=== PATIENT | male | born 1940 | race Caucasian/White ===

== ENCOUNTER 2018-01-09 17:06 | Emergency (ER) | payer MEDICARE, OTHER ==
[~2018-01-09] VITALS: Ht 182.9 cm; Wt 91.0 kg
[~2018-01-09 17:06] MED LIST: ALLEGRA-D 1212 HOUR PO; ASPIRIN EC81 MG PO; AUGMENTIN500TAB PO; AUGMENTIN875 MG OR; CIPROFLOXACN500 MG PO; FLEXERIL10 MG PO; FLEXERIL5 MG PO; FLONASE SPRAY50 MC1; HYDROCHLOROT25 MG PO; KETOCONAZOLE200 MG PO; LOPRESSOR12.5 MG PO; LOPRESSOR25 MG PO; LORTAB 10 PO; LORTAB 5 OR; LORTAB 7.57.5 MG/TAB PO; MEDDOSEPAK PO; MEDROL4 M1 PO; NIZORAL2 % EX; NYSTATIN100000 M1 PO; OMEPRAZOLE20 MG PO; OMEPRAZOLE40 MG PO; PRILOSEC40 MG PO; PROVENTIL HFA IN; SIMVASTATIN40 MG PO; TYLENOL # 31 TAB PO; ZPAK PO; [UNRECOGNIZED DRUG - REMARK]; [UNRECOGNIZED DRUG - REMARK]
[2018-01-09] MEDS ORDERED: KEFLEX500 M1 PO (19:00)
[2018-01-09 19:11] VITALS: BP 148/81
== END 2018-01-09 19:11 | disposition home or self-care (01) ==
LOC: ED 17:06
DX: S91.331A Puncture wound without foreign body, right foot, initial encounter (principal); W45.0XXA Nail entering through skin, initial encounter; Y93.01 Activity, walking, marching and hiking; Y92.007 Garden or yard of unspecified non-institutional (private) residence as the place of occurrence of the external cause

== ENCOUNTER 2018-03-14 05:14 | Emergency (ER) | payer MEDICARE, OTHER ==
[~2018-03-14] VITALS: Ht 182.9 cm; Wt 113.6 kg
[~2018-03-14 05:14] MED LIST changes: +KEFLEX500 M1 PO
[2018-03-14 05:37] LABS: HEMATOCRIT 43.5 % (39.0-50.0); HEMOGLOBIN 15.2 g/dl (14.0-18.0); IMMATURE GRANULOCYTES 0.4 % (0.0-5.0); MEAN CELL VOLUME 94.4 fL CALC (80.0-100.0); MEAN CORPUSCULAR HGB CONC 34.9 g/L CALC (32.0-36.0); NEUT# 4.94 thou/uL (1.82-7.42); RED BLOOD COUNT 4.61 mill/uL (4.70-6.10); RED CELL DISTRI WIDTH 12.6 % (11.5-15.5)
[2018-03-14 05:56] LABS: ALKALINE PHOSPHATASE 92 u/l (38-126); ANION GAP 13 (6-22 (CALC)); BILIRUBIN, TOTAL 0.7 mg/dL (0.0-1.4); BUN 22 mg/dL (8-23); BUN/CREATININE RATIO 13 (12-20 (CALC)); CARBON DIOXIDE 29 mmol/l (22-30); CHLORIDE 100 mmol/l (95-108); CREATININE 1.6 mg/dL (0.7-1.3); GFR 42 ML/MIN (>=60 (CALC)); GFR FOR AFR.AMER. 51 ML/MIN (>=60 (CALC)); POTASSIUM 3.7 mmol/l (3.5-5.1); SGOT/AST 25 u/l (19-48); SODIUM 139 mmol/l (137-146); TOTAL PROTEIN 7.1 g/dL (6.3-8.2)
[2018-03-14 06:02] LABS: ALBUMIN 4.2 g/dL (3.2-5.0)
[2018-03-14 06:07] LABS: MYOGLOBIN 55 ng/mL (0 - 121)
[2018-03-14 06:25] LABS: URINE BILIRUBIN - DIPSTICK NEGATIVE (NEGATIVE); URINE BLOOD DIPSTICK NEGATIVE (NEGATIVE); URINE CLARITY CLEAR; URINE COLOR YELLOW; URINE GLUCOSE - DIPSTICK NEGATIVE (NEGATIVE); URINE KETONE 15 mg/dL (NEGATIVE); URINE LEUK ESTERASE NEGATIVE (NEGATIVE); URINE NITRITE - DIPSTICK NEGATIVE (Negative); URINE PROTEIN - DIPSTICK NEGATIVE (NEG-TRACE)
[2018-03-14 06:28] LABS: BARBITURATES NEGATIVE (NEGATIVE); COCAINE NEGATIVE (NEGATIVE); METHADONE NEGATIVE (NEGATIVE); OXCYCODONE NEGATIVE (NEGATIVE); TETRAHYDROCANNABIONOL NEGATIVE (NEGATIVE); TRICYLIC ANTIDEPRESSANTS NEGATIVE (NEGATIVE)
[2018-03-14] MEDS ORDERED: MEDDOSEPAK PO (06:38)
[2018-03-14] MEDS ORDERED: ANTIVERT PO (06:38)
[2018-03-14] MEDS ORDERED: ZOFRAN ODT4 MG PO (06:38)
[2018-03-14 06:56] VITALS: BP 140/72
== END 2018-03-14 06:57 | disposition home or self-care (01) ==
LOC: ED 05:14
PROVIDERS: Emergency Medicine
DX: R42 Dizziness and giddiness (principal); I10 Essential (primary) hypertension; R94.31 Abnormal electrocardiogram [ECG] [EKG]

== ENCOUNTER 2018-05-26 06:56 | Observation (INO) | payer MEDICARE, OTHER ==
[~2018-05-26] VITALS: Ht 182.9 cm; Wt 94.8 kg
[~2018-05-26 06:56] MED LIST changes: +ANTIVERT PO; +ZOFRAN ODT4 MG PO
--- NOTE | 2018-05-26 07:10 | NUR ---
PATIENT TO ROOM VIA WHEELCHAIR AND PHYSICIAN AT BEDSIDE FOR EVAL
--- NOTE | 2018-05-26 07:24 | NUR ---
PT MEDICATED PER ORDER WITH 1, 0.4 MG NITRO, SL. PATIENT DENIES ANY CHEST PAIN AT THIS TIME. BP 159/88. WILL HOLD LABETALOL 10 MG, NOTIFIED OF LAST BP. PT REPORTS 4 DAY HX OF INTERMITTENT LEFT SIDED CHEST/RIB PAIN UPON COUGHING AND CERTAIN MOVEMENTS. PT C/O COLD-LIKE SYMPTOMS WITH SORE THROAT AND PRODUCTIVE COUGH X 4 DAYS. BILATERAL LS CLEAR, RESP EVEN AND UNLABORED. SAO2 96% ON ROOM AIR AT THIS TIME. PT AWARE OF PLAN OF CARE AND WAIT TIME. CALL JOHNSTON WITHIN REACH.
--- NOTE | 2018-05-26 07:30 | NUR ---
DAILY MEDICATION'S REVIEWED WITH PT.
[2018-05-26 07:39] LABS: HEMATOCRIT 44.6 % (39.0-50.0); HEMOGLOBIN 15.2 g/dl (14.0-18.0); IMMATURE GRANULOCYTES 0.4 % (0.0-5.0); MEAN CORPUSCULAR HGB CONC 34.1 g/L CALC (32.0-36.0); NEUT# 7.09 thou/uL (1.82-7.42); RED BLOOD COUNT 4.6 mill/uL (4.70-6.10)
[2018-05-26 07:46] LABS: ANION GAP 15 (6-22 (CALC)); BUN 13 mg/dL (8-23); BUN/CREATININE RATIO 13 (12-20 (CALC)); CARBON DIOXIDE 24 mmol/l (22-30); CHLORIDE 103 mmol/l (95-108); GFR > 60 ML/MIN (>=60 (CALC)); GFR FOR AFR.AMER. > 60 ML/MIN (>=60 (CALC)); POTASSIUM 3.8 mmol/l (3.5-5.1); SODIUM 137 mmol/l (137-146)
--- NOTE | 2018-05-26 07:55 | NUR ---
PT REMAINS CHEST PAIN FREE AT THIS TIME. MONITOR SHOWING NSR AT 70, BP 113/64. PT C/O HEADACHE. PT AWARE THAT TYLENOL WAS GIVEN. LIGHTS DIMMED FOR COMFORT. PT AWARE OF PENDING RESULTS AND WAIT TIME. CALL JOHNSTON WITHIN REACH.
--- NOTE | 2018-05-26 08:10 | NUR ---
MD AT BEDSIDE TO DISCUSS RESULTS AND PLAN FOR ADMISSION.
--- NOTE | 2018-05-26 09:00 | NUR ---
PT AWARE OF PLAN FOR ADMISSION AND WAIT TIME. PT DENIES ANY CHEST PAIN OR HEADACHE AT THIS TIME.
--- NOTE | 2018-05-26 09:40 | NUR ---
PT AWARE OF CONTINUED WAIT TIME FOR ADMISSION ORDERS. PT IN NAD, RESP EVEN AND UNLABORED. PT PAIN FREE AT THIS TIME. CALL JOHNSTON WITHIN REACH. WILL CONTINUE TO MONITOR.
--- NOTE | 2018-05-26 10:00 | NUR ---
PT REQUESTING TO LEAVE PANTS AND SHOES ON UNTIL TAKEN TO ROOM.
--- NOTE | 2018-05-26 10:02 | NUR ---
DR DUBOIS AT BEDSIDE.
--- NOTE | 2018-05-26 10:10 | NUR ---
Admission Note Report Given to: MARGARETH MUHAMMAD Transported by: X Wheelchair Stretcher Transported with: X Nurse Transporter X Patent IV O2 X Gizzard Puller PT TO ROOM 283 VIA WHEELCHAIR, CARE RELINQUISHED TO MARGARETH MUHAMMAD. PT IN STABLE CONDITION.
[2018-05-26 10:15] VITALS: BP 138/83
--- NOTE | 2018-05-26 10:16 | NUR ---
[facility] BY MARGARETH WALTON. GUICHO IN ROOM TO OBTAIN VS. CALL LIGHT IN REACH.
--- NOTE | 2018-05-26 12:00 | NUR ---
ASSESSMENT DONE. PT IS A&O X3. RESPS EVEN AND UNLABORED. PT HAS A DRY COUGH. #22 RAC THAT APPEARS HEALTHY. TELE IN PLACE. IN ROOM. CALL LIGHT IN REACH.
[2018-05-26 15:55] VITALS: BP 135/83
--- NOTE | 2018-05-26 16:12 | NUR ---
PT IS RESTING IN BED WITH NO S/S OF DISTRESS NOTED. PT DENIES PAIN AT THIS TIME. IN ROOM. CALL LIGHT IN REACH.
[2018-05-26 19:15] VITALS: BP 143/82
--- NOTE | 2018-05-26 19:32 | NUR ---
PATIENT RESTING IN BED AT THIS TIME AWAKE ALERT AND ORIENTEDX3. C/O NON-PRODUCTIVE COUGH-MEDICATED WITH ROBITUSSIN ORDERED FOR COUGH. IV SITE TO RIGHT AC WITH IVF LR PATENT AND INFUSING AT 75CC/HR. SITE APPEARS HELATHY AT THIS TIME. SAFETY PRECAUTIONS REINFORCED.CALL LIGHT IN REACH. WILL CONT TO MONITOR.
--- NOTE | 2018-05-26 21:41 | NUR ---
PATIENT RESTING IN BED AT THIS TIME WITH VISITOR AT BEDSIDE-EATING PIZZA. PATIENT PROVIDED WITH HS MEDS. STILL WITH NON-PRODUCTIVE COUGH. C/O LEFT SIDED CHEST PAIN-OFFERED PAIN MEDS BUT PATIENT DECLINED AT THIS TIME. IVF PATENT AT 75CC/HR. SITE REMAINS HEALTHY. CALL LIGHT IN REACH. WILL CONT TO MONITOR.
[2018-05-27 00:05] VITALS: BP 131/68
--- NOTE | 2018-05-27 00:35 | NUR ---
PATIENT RESTING IN BED. IVF D51/2NS PATENT AND INFUSING AT 75CC/HR.NEW BAG HUNG AND SITE REMAINS HEALTHY AT THIS TIME. CONT WITH NON-PRODUCTIVE COUGH-MEDICATED WITH ROBITUSSIN AGAIN. C/O LEFT SIDE CHEST AND BACK PAIN BUT CONT TO DECLINE ANYTHING FOR PAIN AT THIS TIME. CALL LIGHT IN REACH. WILL CONT TO MONITOR.
[2018-05-27 04:20] VITALS: BP 129/70
--- NOTE | 2018-05-27 04:24 | NUR ---
PATIENT RESTING IN BED-APPEARS SLEEPING WITH EYES CLOSED AND RESP EVEN AND UNLABORED. IVF PATENT AND INFUSING AT 75CC/HR VIA RIGHT AC SITE. CALL LIGHT IN REACH. WILL CONT TO MONITOR.
--- NOTE | 2018-05-27 06:18 | NUR ---
PATIENT STILL WITH NON-PRODUCTIVE COUGH-REFUSES ROBITUSSIN AT THIS TIME. PATIENT SLIGHT SOB-O2 SAT-97 ON RA. PATIENT WITH WHEEZING TO LEFT LUNG. DIMINISHED IN RIGHT BASE. CALL LIGHT IN REACH. WILL CONT TO MONITIOR.
[2018-05-27 06:29] LABS: HEMATOCRIT 43.5 % (39.0-50.0); HEMOGLOBIN 14.8 g/dl (14.0-18.0); IMMATURE GRANULOCYTES 0.4 % (0.0-5.0); MEAN CORPUSCULAR HGB 33.3 pG CALC (26.0-32.0); NEUT# 7.94 thou/uL (1.82-7.42); RED BLOOD COUNT 4.44 mill/uL (4.70-6.10); RED CELL DISTRI WIDTH 13.1 % (11.5-15.5)
[2018-05-27 06:37] LABS: ALBUMIN 3.6 g/dL (3.2-5.0); ALKALINE PHOSPHATASE 100 u/l (38-126); ANION GAP 14 (6-22 (CALC)); BILIRUBIN, TOTAL 0.7 mg/dL (0.0-1.4); BUN 14 mg/dL (8-23); BUN/CREATININE RATIO 15 (12-20 (CALC)); CARBON DIOXIDE 25 mmol/l (22-30); CHLORIDE 104 mmol/l (95-108); CHOLESTEROL HDL RATIO 3.6 (<4.4 (CALC)); CREATININE 0.9 mg/dL (0.7-1.3); GFR > 60 ML/MIN (>=60 (CALC)); GFR FOR AFR.AMER. > 60 ML/MIN (>=60 (CALC)); SGOT/AST 20 u/l (19-48); SODIUM 139 mmol/l (137-146); TOTAL PROTEIN 6.4 g/dL (6.3-8.2)
--- NOTE | 2018-05-27 08:50 | NUR ---
PT RESTING IN BED, NO SIGNS OF DISTRESS NOTED, RESP EVEN AND UNLABORED. PT ALERT AND ORIENTED X3, DISCUSSED POC, VSS. PT MEDICATED PER MAR. PNEUMONIA VACC INJECTION TO PORTILLO, PT TOLERATED WELL. ASSESSMENT COMPLETED. CALL LIGHT IN REACH,CONTINUE TO MONITOR.
[2018-05-27 08:51] VITALS: BP 132/72
--- NOTE | 2018-05-27 10:47 | NUR ---
PT TAKEN TO RADIOLOGY FOR CXR. CONTINUE TO MONITOR.
--- NOTE | 2018-05-27 11:00 | NUR ---
PT RETURNED FROM RADIOLOGY, PT MEDICATED WITH FERNANDOSIN AC. CALL LIGHT IN REACH,CONTINUE TO MONITOR.
[2018-05-27 11:50] VITALS: BP 129/72
--- NOTE | 2018-05-27 14:20 | NUR ---
PT SITTING UP IN BED, NO SIGNS OF DISTRESS NOTED, RESP EVEN AND UNLABORED. PT STILL COUGHING, STATES HE IS COUGHING UP GREEN PHLEM. CALL LIGHT IN REACH, CONTINUE TO MONITOR.
--- NOTE | 2018-05-27 15:36 | NUR ---
PT RESTING IN BED, NO SIGNS OF DISTRESS NOTED, RESP EVEN AND UNLABORED. S/O AT BEDSIDE. CALL LIGHT IN REACH,CONTINUE TO MONITOR.
[2018-05-27 16:00] VITALS: BP 118/71
[2018-05-27 19:30] VITALS: BP 148/68
--- NOTE | 2018-05-27 19:30 | NUR ---
PATIENT RESTING IN BED AT THIS TIME-AWAKE ALERT AND ORIENTEDX3. CURRENTLY RECEIVING NEB TREATMENT. CONT TO HAVE COUGH-OCC PRODUCTIVE WITH GREEN SPUTUM THIS AFTERNOON. CONT TO C/O LEFT SIDED CHEST PAIN. PATIENT MEDICATED WITH ROBITUSSIN AC FOR COUGH. OFFERED PAIN MEDS BUT PATIENT DECLINES AT THIS TIME. IV SITE TO RIGHT AC INTACT WITH IVF D51/2NS PATENT AND INFUSING AT 75CC/HR. SITE IS HEALTHY AT THIS TIME. TELE MONITOR IN PLACE. LUNGS ARE CLEAR AT THIS TIME. SAFETY PRECAUTIONS REINFORCED.CALL LIGHT IN REACH. WILL CONT TO MONITOR.
[2018-05-28] VITALS (7 sets, daily range): BP systolic 124–144; BP diastolic 68–80
--- NOTE | 2018-05-28 00:36 | NUR ---
PATIENT RESTING IN BED AT THIS TIME WITH S/O AT BEDSIDE. ASKING FOR COUGH MEDS BUT TOO EARLY AT THIS TIME. WILL MEDICATE PATIENT WHEN ABLE. TELE MONITOR IN PLACE. IVF PATENT AND INFUSING AT 75CC/HR VIA RIGHT AC SITE. SAFETY PRECAUTIONS REINFORCED.CALL LIGHT IN REACH. WILL CONT TO MONITOR.
--- NOTE | 2018-05-28 02:07 | NUR ---
PATIENT RESTING IN BED WITH S/O AT BEDSIDE. PATIENT MEDICATED FOR NON-PRODUCTIVE COUGH WITH ROBITUSSIN AC ORDERED. TELLE IN PLACE. IVF PATENT AND INFUSING AT 75CC/HR ORDERED. CALL LIGHT IN REACH. WILL CONT TO MONITOR.
--- NOTE | 2018-05-28 04:43 | NUR ---
RESTING IN BED AT THIS TIME WITH HOB ELEVATED AND EYES CLOSED. TELE MONITOR IN PLACE. IVF D51/2NS PATENT AND INFUSING VIA RIGHT AC SITE. CALL LIGHT IN REACH. WILL CONT TO MONITOR.
--- NOTE | 2018-05-28 06:03 | NUR ---
PATIENT C/O rOUGH" NIGHT-NOT ABLE TO SLEEP. STILL WITH NON PRODUCTIVE COUGH. CONT TO C/O LEFT SIDED CHEST PAIN BUT DECLINES TO TAKE ANY PAIN MEDS. IVF PATENT AND INFUSING AT 75CC/HR. TELE MONITOR INPLACE. CALL LIGHT IN REACH. WILL CONT TO MONITOR.
[2018-05-28 06:21] LABS: HEMATOCRIT 44.7 % (39.0-50.0); HEMOGLOBIN 15.1 g/dl (14.0-18.0); IMMATURE GRANULOCYTES 0.4 % (0.0-5.0); MEAN CELL VOLUME 98.5 fL CALC (80.0-100.0); MEAN CORPUSCULAR HGB 33.3 pG CALC (26.0-32.0); MEAN CORPUSCULAR HGB CONC 33.8 g/L CALC (32.0-36.0); NEUT# 7.48 thou/uL (1.82-7.42); RED BLOOD COUNT 4.54 mill/uL (4.70-6.10); RED CELL DISTRI WIDTH 13.1 % (11.5-15.5)
[2018-05-28 06:36] LABS: ALBUMIN 3.5 g/dL (3.2-5.0); ALKALINE PHOSPHATASE 84 u/l (38-126); ANION GAP 14 (6-22 (CALC)); BILIRUBIN, TOTAL 0.7 mg/dL (0.0-1.4); BUN 11 mg/dL (8-23); BUN/CREATININE RATIO 12 (12-20 (CALC)); CARBON DIOXIDE 25 mmol/l (22-30); CHLORIDE 105 mmol/l (95-108); CREATININE 0.9 mg/dL (0.7-1.3); GFR > 60 ML/MIN (>=60 (CALC)); GFR FOR AFR.AMER. > 60 ML/MIN (>=60 (CALC)); SGOT/AST 17 u/l (19-48); SODIUM 140 mmol/l (137-146); TOTAL PROTEIN 6.2 g/dL (6.3-8.2)
--- NOTE | 2018-05-28 07:00 | NUR ---
SHIFT CHANGE REPORT, PT SLEEPING BUT AWAKENED TO VERBAL STIMULI, ORIENTED, C/O PAIN TO LEFT CHEST AND REPORTED HE HAS NOT SLEPT ALL NIGHT DUE TO COUGHING AND PAIN IN CHEST. DR DUBOIS ROUNDED AND DISCUSSED PLAN OF CARE TO START ON STEROIDS AND HAVE CT DONE, SPOUSE AT BEDSIDE AND HAD MANY QUESTIONS WHICH HAVE BEEN ADDRESSED. WILL CONTINUE TO MONITOR, CALL JOHNSTON IN REACH.
--- NOTE | 2018-05-28 19:30 | NUR ---
PATIENT RESTINGIN BED AT THIS TIME-AWAKE ALERT AND ORIENTEDX3. PATIENT STATES THAT HE IS FEELING SOME IMPROVEMENT AFTER STRTING THE SOLU-MEDROL TODAY. STATES THAT THE LEFT CHEST PAIN IS GONE AT THIS TIME. TELE MONITOR IN PLACE. IV SITE TO RIGHT AC INTACT AND IVF PATENT AND INFUSING AT 75CC/HR. SAFETY PRECAUTIONS REINFORCED. CALL LIGHT IN REACH. WILL CONT TO MONITOR.
--- NOTE | 2018-05-28 20:30 | NUR ---
REPORT RECEIVED FROM CEASAR. PT RESTING IN BED, AT BEDSIDE. NO SIGNS OR SYMPTOMS OF DISTRESS. SAFETY PRECAUTIONS IN PLACE. WILL CONTINUE TO MONITOR.
--- NOTE | 2018-05-28 22:00 | NUR ---
PT RESTING IS BED WATCHING TV, AT BEDSIDE. PT ALERT AND ORIENTED, IN GOOD SPIRITS, MAKING JOKES. RESPIRATIONS EVEN AND UNLABORED ON RA, LUNGS SOUND CLEAR. IV # 22 RAC, INFUSING D5 1/2, APPEARS HEALTHY. TELE MONITOR IN PLACE. PT PROVIDED WITH ICE CREAM AND AN EXTRA BLANKET PER REQUEST. PT DENIES ANY PAINS OR DISCOMFORTS AT THIS TIME. SAFETY PRECAUTIONS IN PLACE. WILL CONTINUE TO MONITOR.
--- NOTE | 2018-05-29 00:18 | NUR ---
PT SITTING UP IN BED WATCHING TV, SLEEPING AT BEDSIDE. PT DENIES ANY PAINS OR DISCOMFORT AT THIS TIME. SAFETY PRECAUTIONS IN PLACE WILL CONTINUE TO MONITOR.
--- NOTE | 2018-05-29 04:50 | NUR ---
PT SLEEPING IN BED. NO SIGNS OR SYMPTOMS OF DISTRESS. SAFETY PRECAUTIONS IN PLACE. WILL CONTINUE TO MONITOR.
[2018-05-29 05:00] VITALS: BP 126/73
[2018-05-29 06:09] LABS: HEMATOCRIT 44.4 % (39.0-50.0); HEMOGLOBIN 15.2 g/dl (14.0-18.0); IMMATURE GRANULOCYTES 0.4 % (0.0-5.0); MEAN CELL VOLUME 96.9 fL CALC (80.0-100.0); MEAN CORPUSCULAR HGB 33.2 pG CALC (26.0-32.0); MEAN CORPUSCULAR HGB CONC 34.2 g/L CALC (32.0-36.0); NEUT# 9.94 thou/uL (1.82-7.42); RED BLOOD COUNT 4.58 mill/uL (4.70-6.10); RED CELL DISTRI WIDTH 12.8 % (11.5-15.5)
[2018-05-29 06:19] LABS: ALBUMIN 3.8 g/dL (3.2-5.0); ALKALINE PHOSPHATASE 92 u/l (38-126); ANION GAP 14 (6-22 (CALC)); BILIRUBIN, TOTAL 0.7 mg/dL (0.0-1.4); BUN 14 mg/dL (8-23); BUN/CREATININE RATIO 19 (12-20 (CALC)); CARBON DIOXIDE 24 mmol/l (22-30); CHLORIDE 104 mmol/l (95-108); CREATININE 0.8 mg/dL (0.7-1.3); GFR > 60 ML/MIN (>=60 (CALC)); GFR FOR AFR.AMER. > 60 ML/MIN (>=60 (CALC)); POTASSIUM 4.4 mmol/l (3.5-5.1); SGOT/AST 16 u/l (19-48); SODIUM 138 mmol/l (137-146); TOTAL PROTEIN 6.7 g/dL (6.3-8.2)
[2018-05-29 07:40] VITALS: BP 151/73
[2018-05-29 08:52] VITALS: BP 151/73
[2018-05-29] MEDS ORDERED: MEDDOSEPAK PO (09:31)
--- NOTE | 2018-05-29 11:05 | NUR ---
Discharge instructions given. Patient verbalizes understanding of same. Discharged in fair condition via Ambulatory to Home with spouse. All belongings sent with pt.
== END 2018-05-29 11:04 | disposition home or self-care (01) ==
LOC: ED 06:56 → ED-I 08:05 → ED 08:41 → MS2 08:42
PROVIDERS: Family Medicine; ADMIT Internal Medicine Geriatric Medicine; ATTEND Internal Medicine Geriatric Medicine
PROC: 3E0234Z Introduction of Serum, Toxoid and Vaccine into Muscle, Percutaneous Approach (ICD-10-PCS; principal; 2018-05-27)
DX: R07.89 Other chest pain (principal); J44.1 Chronic obstructive pulmonary disease with (acute) exacerbation; I11.0 Hypertensive heart disease with heart failure; I50.9 Heart failure, unspecified; I25.10 Atherosclerotic heart disease of native coronary artery without angina pectoris; E78.5 Hyperlipidemia, unspecified; K21.9 Gastro-esophageal reflux disease without esophagitis; K27.9 Peptic ulcer, site unspecified, unspecified as acute or chronic, without hemorrhage or perforation; I45.10 Unspecified right bundle-branch block; Z23 Encounter for immunization; R61 Generalized hyperhidrosis
CPT/HCPCS: G0378; Q9967

== ENCOUNTER 2018-06-22 11:51 | Observation (INO) | payer MEDICARE, OTHER ==
[~2018-06-22] VITALS: Ht 182.9 cm; Wt 106.0 kg
[2018-06-22] VITALS (10 sets, daily range): BP systolic 119–154; BP diastolic 65–77
[~2018-06-22 11:51] MED LIST changes: -XARELTO15 MG PO
--- NOTE | 2018-06-22 11:53 | NUR ---
Pt ambulated to room # 9 with steady gait. Refused W/C. Pt placed on correspondence analyst, SAO2, and BP monitors.
--- NOTE | 2018-06-22 11:57 | NUR ---
TO ROOM 9
[2018-06-22 12:47] LABS: HEMATOCRIT 43.2 % (39.0-50.0); HEMOGLOBIN 14.4 g/dl (14.0-18.0); IMMATURE GRANULOCYTES 0.3 % (0.0-5.0); MEAN CELL VOLUME 96.9 fL CALC (80.0-100.0); MEAN CORPUSCULAR HGB 32.3 pG CALC (26.0-32.0); MEAN CORPUSCULAR HGB CONC 33.3 g/L CALC (32.0-36.0); NEUT# 3.94 thou/uL (1.82-7.42); RED BLOOD COUNT 4.46 mill/uL (4.70-6.10); RED CELL DISTRI WIDTH 13.1 % (11.5-15.5)
--- NOTE | 2018-06-22 12:52 | NUR ---
family at bedside. n/c at this time
[2018-06-22 13:01] LABS: PROTHROMBIN TIME 10.7 SECONDS (9.0-12.5)
[2018-06-22 13:03] LABS: ANION GAP 12 (6-22 (CALC)); BUN 20 mg/dL (8-23); BUN/CREATININE RATIO 22 (12-20 (CALC)); CARBON DIOXIDE 30 mmol/l (22-30); CHLORIDE 100 mmol/l (95-108); CREATININE 0.9 mg/dL (0.7-1.3); GFR > 60 ML/MIN (>=60 (CALC)); GFR FOR AFR.AMER. > 60 ML/MIN (>=60 (CALC)); SODIUM 138 mmol/l (137-146)
--- NOTE | 2018-06-22 13:52 | NUR ---
TO DOSE WEIGHT 91KG PER SADE
--- NOTE | 2018-06-22 14:12 | NUR ---
REPORT CALLED TO MARGARETH VALENZUELA
--- NOTE | 2018-06-22 14:13 | NUR ---
PT ADMITTED TO ICU BED 8 VIA STRECTHER FROM ER, PER PT HE HAS BEEN BATTLING A COUGH FOR WEEKS AND BEEN BACK AND FORTH TO SEE DR.NATHAN MAGDIEL TOBINT, THIS AM HAD CTA OP WHICH WAS POSITIVE FOR PULMONARY EMBOLI, SO HE WAS TAKEN TO E.R. FROM RADIOLOGY AND THEN ADMITTED WITH HEPARIN GTT PER PROTOCOL, PT ABLE TO STAND OFF STRETCHER AND TRANSFER SELF TO BED WITH STEADY GAIT, ORIENTED TO ROOM AND UNIT, ALL MONITORING EQUIPMENT EXPLAINED PRIOR TO APPLICATION, ADMISSION ASSESSMENT COMPLETED SEE INTERVENTIONS, SKIN WARM DRY AND INTACT WITH NO BREAKDOWN NOTED, ABD SOFT AND BS ACTIVE PT LUNGS DIMINSHED BUT CLEAR WITH NO SOB, PT COMPLAINS OF STRICTLY A COUGH AND OCCASIONAL R UPPER CHEST DISCOMFORT WITH COUGH OR DEEP INSPIRATION, 20G IV ACCESS INTACT IN RAC WITH HEAPRIN GTT PER PROTOCOL, TELE READING SR RATE IN THE 50-70'S WITH OCCASIONAL PVC'S NOTED, BP STABLE PT AFEBRILE, COMFORT MEASURES PROVIDED, WILL CONTINUE TO MONITOR, AT BEDSIDE IN WHEELCHAIR.
--- NOTE | 2018-06-22 14:20 | NUR ---
TO ICU VIA STRETCHER
--- NOTE | 2018-06-22 15:25 | NUR ---
PT RESTING, WATER PROVIDED AT BEDSIDE, AND PLAN OF CARE DISCUSSED INCLUDING POSSIBLE LENGTH OF STAY, TREATMENT PLAN AND MEDICATIONS, WILL CONTINUE TO MONITOR.
--- NOTE | 2018-06-22 16:39 | NUR ---
PT RESTING IN BED, VISITORS AT BEDSIDE, REMAINS AT BEDSIDE WELL, WILL CONTINUE TO MONITOR.
--- NOTE | 2018-06-22 16:50 | NUR ---
VISITORS AND SPOUSE LEAVING AT THIS TIME, CALL JOHNSTON WITHIN REACH, WILL CONTINUE TO MONITOR.
--- NOTE | 2018-06-22 17:19 | NUR ---
SET UP ASSIST PROVIDED FOR PM MEAL. WILL CONTINUE TO MONITOR.
--- NOTE | 2018-06-22 17:46 | NUR ---
PER RADIOLOGY MUST WAIT 24 HRS TO PERFORM CTA RELATED TO PT HAD CONTRAST TO FOR CT, WILL NOTIFY ON PM ROUNDS.
--- NOTE | 2018-06-22 19:15 | NUR ---
awake. denies resp distress or chest pain. personnel monitor shows sinus rhythm 1st degree avb. #20 rac heparin gtt infusing @ 30cchr. po fluids taken well. voids per urinal. fall precautions cont.
--- NOTE | 2018-06-22 20:20 | NUR ---
lab here. blood drawn.
--- NOTE | 2018-06-22 21:19 | NUR ---
lab called regarding ptt results. spoke to eduardo. said "will be soon."
--- NOTE | 2018-06-22 21:20 | NUR ---
jyotsna from lab called this brief writer. ptt results rec'd. heparin turned off.
--- NOTE | 2018-06-22 22:00 | NUR ---
watching tv. no resp diff. furniture designer shows sb 1st degree avb pvcs.
[2018-06-23] VITALS (18 sets, daily range): BP systolic 113–149; BP diastolic 56–90
--- NOTE | 2018-06-23 00:01 | NUR ---
eyes closed. no apparent distress.
--- NOTE | 2018-06-23 02:00 | NUR ---
resting quietly. resps even & unlabored. no apparent distress.
--- NOTE | 2018-06-23 04:30 | NUR ---
lab here. blood drawn.
[2018-06-23 04:40] LABS: HEMATOCRIT 43.3 % (39.0-50.0); HEMOGLOBIN 14.6 g/dl (14.0-18.0); IMMATURE GRANULOCYTES 0.5 % (0.0-5.0); MEAN CELL VOLUME 96.7 fL CALC (80.0-100.0); MEAN CORPUSCULAR HGB 32.6 pG CALC (26.0-32.0); MEAN CORPUSCULAR HGB CONC 33.7 g/L CALC (32.0-36.0); NEUT# 3.33 thou/uL (1.82-7.42); RED BLOOD COUNT 4.48 mill/uL (4.70-6.10); RED CELL DISTRI WIDTH 13.2 % (11.5-15.5)
--- NOTE | 2018-06-23 05:45 | NUR ---
rt here. ekg obtained.
--- NOTE | 2018-06-23 06:00 | NUR ---
to xray per wc for 2 v cxr.
[2018-06-23 06:13] LABS: ALBUMIN 3.5 g/dL (3.2-5.0); ALKALINE PHOSPHATASE 91 u/l (38-126); ANION GAP 13 (6-22 (CALC)); BILIRUBIN, TOTAL 0.6 mg/dL (0.0-1.4); BUN 15 mg/dL (8-23); BUN/CREATININE RATIO 18 (12-20 (CALC)); CALCULATED LDLCHOLESTEROL 82 mg/dL (62-129 (CALC)); CARBON DIOXIDE 25 mmol/l (22-30); CHLORIDE 106 mmol/l (95-108); CHOLESTEROL HDL RATIO 3.5 (<4.4 (CALC)); CREATININE 0.8 mg/dL (0.7-1.3); GFR > 60 ML/MIN (>=60 (CALC)); GFR FOR AFR.AMER. > 60 ML/MIN (>=60 (CALC)); HDL CHOLESTEROL 47 mg/dL (>=40); POTASSIUM 4.2 mmol/l (3.5-5.1); SODIUM 139 mmol/l (137-146); TOTAL CHOLESTEROL 164 mg/dl (0-199); TOTAL PROTEIN 6.2 g/dL (6.3-8.2); TOTAL TRIGLYCERIDES 178 mg/dl (30-149); VLDL CHOLESTROL 36 mg/dl (0-38 (CALC))
[2018-06-23 06:22] LABS: SGOT/AST 31 u/l (19-48)
--- NOTE | 2018-06-23 07:35 | NUR ---
PT RESTING IN BED AROUSES EASILY TO VERBAL STIMULI VEL GUILLEN NOTED PT HAS BILATERAL HEARING AIDS THAT ARE AT HOME CURRENTLY, AM ASSESSMENT COMPLETED SEE INTERVENTIONS, SKIN WARM AND DRY WITH NO BREAKDOWN NOTED, ABD DISTENDED BUT SOFT, DENIES N/V, IV ACCESS INTACT IN RAC WITH HEPARIN GTT PER PROTOCOL, FOR PE DX, AFEBRILE WITH NO TELE CHANGES NOTED, BP STABLE, COMFORT MEASURES PROVIDED, SAFETY MEASURES REINFORCED. WILL CONTINUE TO MONITOR.
--- NOTE | 2018-06-23 07:50 | NUR ---
SET UP ASSIST PROVIDED FOR AM MEAL, CALL VICKIE GREENWOOD, ASSISTED TO SITTING UP ON EDGE OF BED FOR COMFORT TO EAT, WILL CONTINUE TO MONITOR.
--- NOTE | 2018-06-23 08:24 | NUR ---
PT ATE 100% OF AM MEAL, ASSIST BACK TO BED, REPOSTIONED SELF FOR COMFORT, HEPARIN GTT CONTINUES PT AWARE OF NEXT PTT DUE AT 1030, SPEAKING ON PHONE WITH FRIEND EARLIER, ASKIN QUESTIONS TO WIRTER ABOUT CLOTS, HEAPRIN, BLOOD THINNERS IN GENERAL AND MOBILITY, ALL QUESTIONS ANSWERED AND PRINTED MATERIAL PROVIDED, WILL CONTINUE TO MONITOR.
--- NOTE | 2018-06-23 08:53 | NUR ---
PT TAKES AM MEDICATIONS W/O INCIDENT, WILL CONTINUE TO MONITOR
--- NOTE | 2018-06-23 09:33 | NUR ---
AND VISITOR AT BEDSIDE, PT STATES HE GETS HIS PAIN PILLS FROM [facility], WILL CALL TO CONFIRM WHAT MEDICATION IS PATIENT UNSURE.
--- NOTE | 2018-06-23 10:07 | NUR ---
AT BEDSIDE EDUCATGION PROVIDED ON DIAGNOISIS AND TREATMENT PLAN PAIN MEDICATION ADDRESSED.
--- NOTE | 2018-06-23 10:26 | NUR ---
PT MEDICATED FOR COMPLAINTS OF LEFT CHEST WALL PAIN ORDERED.
--- NOTE | 2018-06-23 10:42 | NUR ---
CASE MGMT IN TO SEE PATIENT, REMAINS AT BEDSIDE.
--- NOTE | 2018-06-23 10:50 | NUR ---
SECOND PTT THERAPEUTIC; PER PROTOCOL CONTINUE GTT AND NEXT PTT DUE IN AM, REMAINS AT BEDSIDE, COMFORT MEASURES PROVIDED, WILL CONTINUE TO MONITOR.
--- NOTE | 2018-06-23 12:16 | NUR ---
PT TOLERATED AFTERNOON MEAL WITH APPETITE GOOD, PT EATING 100% OF MEALS THIS FAR, CALL JOHNSTON WITHIN REAC, REMAINS AT BEDSIDE
--- NOTE | 2018-06-23 14:15 | NUR ---
WATCHING TELEVISION, REMAINS AT BEDSIDE, USES URINAL WITHOUT INCIDENT, DHEPRIN GTT CONTINUES PER PROTOCOL, CALLBELL WITHIN REACH, WILL CONTINUE TO MONITOR.
--- NOTE | 2018-06-23 16:10 | NUR ---
PT RESTING IN BED, WATCHING TELEVISION, REMAINS AT BEDSIDE, NO COMPLAINTS OF PAIN OR DICSOMFORT, PT DOZES INTERMINTTENTLY, CALL JOHNSTON WITHIN REACH, WILL CONTINUE TO MONITOR.
--- NOTE | 2018-06-23 17:34 | NUR ---
SET UP ASSIST PROVIDED FOR PM MEAL, REMAINS AT BEDSIDE, WILL CONTINUE TO MONITOR. CALL JOHNSTON WITHIN REACH
--- NOTE | 2018-06-23 18:12 | NUR ---
TOLERATED PM MEAL WELL WITH GOOD INTAKE, WILL CONTINUE TO MONITOR. REMAINS AT BEDSIDE.
--- NOTE | 2018-06-23 19:40 | NUR ---
awake. denies chest pain & resp diff. cardiac monirtor shows sinus rhythm 1st degree avb pvcs. #20 rac heparin gtt infusing 24cchr. po fluids taken well. voids per urinal. fall precautions cont. @ bedside.
--- NOTE | 2018-06-23 20:30 | NUR ---
amb to br for bm. miriam well.
--- NOTE | 2018-06-23 22:00 | NUR ---
watching tv. no c/o voiced. @ bedside.
[2018-06-24] VITALS (19 sets, daily range): BP systolic 100–143; BP diastolic 46–82
--- NOTE | 2018-06-24 00:01 | NUR ---
eyes closed. no distress. child monitor shows sinus rhythm 1st degree avb pvcs.
--- NOTE | 2018-06-24 02:00 | NUR ---
resting quietly. resps even & unlabored. no apparent distress.
--- NOTE | 2018-06-24 04:00 | NUR ---
eyes closed. no distress. @ bedside.
--- NOTE | 2018-06-24 05:25 | NUR ---
lab here. blood drawn.
[2018-06-24 05:52] LABS: HEMATOCRIT 45.1 % (39.0-50.0); IMMATURE GRANULOCYTES 0.3 % (0.0-5.0); MEAN CELL VOLUME 98.7 fL CALC (80.0-100.0); MEAN CORPUSCULAR HGB 32.8 pG CALC (26.0-32.0); MEAN CORPUSCULAR HGB CONC 33.3 g/L CALC (32.0-36.0); NEUT# 3.42 thou/uL (1.82-7.42); RED BLOOD COUNT 4.57 mill/uL (4.70-6.10); RED CELL DISTRI WIDTH 13.2 % (11.5-15.5)
[2018-06-24 05:53] LABS: INTERNATIONAL NORMALIZED RATIO 1.1 RATIO (0.7-1.3)
[2018-06-24 05:59] LABS: ALBUMIN 3.3 g/dL (3.2-5.0); ALKALINE PHOSPHATASE 83 u/l (38-126); BILIRUBIN, TOTAL 0.7 mg/dL (0.0-1.4); BUN 17 mg/dL (8-23); BUN/CREATININE RATIO 17 (12-20 (CALC)); CARBON DIOXIDE 26 mmol/l (22-30); CHLORIDE 106 mmol/l (95-108); GFR > 60 ML/MIN (>=60 (CALC)); GFR FOR AFR.AMER. > 60 ML/MIN (>=60 (CALC)); SGOT/AST 20 u/l (19-48)
--- NOTE | 2018-06-24 06:00 | NUR ---
no acute change in condition this shift. remains @ bedside.
[2018-06-24 06:34] LABS: ANION GAP 10 (6-22 (CALC)); SODIUM 138 mmol/l (137-146)
--- NOTE | 2018-06-24 07:15 | NUR ---
ASSESSMENT IS COMPLETED: PT IS ALERT, NO DISTRESS NOTED. IV SITE IS FREE FROM REDNESS OR EDEMA. NOTED. HR IS REG,PULSES ARE STRONG X4, ABD IS SOFT WITH ACTIVE BS. BREATH SOUNDS ARE CLEAR,BILATERALLY. CONTINUE TO OSBERVE AND MONITOR.
--- NOTE | 2018-06-24 10:00 | NUR ---
IN TO VISIT WITH PT. ENCOURAGE PT TO SIT IN THE CHAIR TODAY. IV SITE IS FREE FROM REDNESS OR EDEMA.
--- NOTE | 2018-06-24 10:02 | NUR ---
PT SIGNED CONSENT FOR TESTING OF THE BLOOD ON GENETIC TESTING.
--- NOTE | 2018-06-24 12:20 | NUR ---
PT IS RELAXING IN BED, WITH NO DISTRESS NOTED. IV SITE IS FREE FROM REDNESS OR EDEMA.
--- NOTE | 2018-06-24 14:00 | NUR ---
pt is relaxing in bed with no distress noted. iv site is free from redness or edema.
--- NOTE | 2018-06-24 16:00 | NUR ---
PT IS RELAXING IN BED WITH NO DISTRESS NOTED.IV SITE IS FREE FROM REDNESS OR EDEMA.
--- NOTE | 2018-06-24 18:00 | NUR ---
PT IS RELAXING IN BED WITH NO DISTRESS NOTED. FAMILY IN THE ROOM.
--- NOTE | 2018-06-24 19:15 | NUR ---
awake. watching tv. denies chest pain & sob. personnel monitor shows sinus rhythm 1st degree avb pvcs. #20 rac heparin gtt infuing @ 24cchr. po fluids taken well. voids per urinal. fall precautions cont. @ bedside.
--- NOTE | 2018-06-24 22:00 | NUR ---
watching tv. no c/o voiced. @ bedside.
[2018-06-25] VITALS (7 sets, daily range): BP systolic 113–147; BP diastolic 57–68
--- NOTE | 2018-06-25 00:01 | NUR ---
eyes closed. no distress. case monitor shows sinus rhythm 1st degree avb pacs pvcs.
--- NOTE | 2018-06-25 02:00 | NUR ---
resting quietly. resps even & unlabored. no apparent distress.
--- NOTE | 2018-06-25 04:40 | NUR ---
lab here. blood drawn.
[2018-06-25 05:08] LABS: ANION GAP 10 (6-22 (CALC)); BUN 17 mg/dL (8-23); BUN/CREATININE RATIO 17 (12-20 (CALC)); CARBON DIOXIDE 25 mmol/l (22-30); CHLORIDE 106 mmol/l (95-108); GFR > 60 ML/MIN (>=60 (CALC)); GFR FOR AFR.AMER. > 60 ML/MIN (>=60 (CALC)); HEMATOCRIT 43.7 % (39.0-50.0); HEMOGLOBIN 14.6 g/dl (14.0-18.0); MEAN CORPUSCULAR HGB 32.7 pG CALC (26.0-32.0); MEAN CORPUSCULAR HGB CONC 33.4 g/L CALC (32.0-36.0); NEUT# 4.15 thou/uL (1.82-7.42); POTASSIUM 4.2 mmol/l (3.5-5.1); RED BLOOD COUNT 4.46 mill/uL (4.70-6.10); RED CELL DISTRI WIDTH 13.2 % (11.5-15.5); SODIUM 138 mmol/l (137-146)
--- NOTE | 2018-06-25 05:40 | NUR ---
lab here. blood redrawn.
--- NOTE | 2018-06-25 07:15 | NUR ---
PT RESTING IN BED AROUSES EASILY TO VERBAL STIMULI SOME PT WEARING HIS OWN BILATERAL HEARING AIDS, AM ASSESSMENT COMPLETED SEE INTERVENTIONS, SKIN WARM AND DRY WITH NO BREAKDOWN NOTED, ABD DISTENDED BUT SOFT, DENIES N/V, BM YESTERDAY SOFT AND NORMAL PER PT, IV ACCESS INTACT IN RAC WITH HEPARIN GTT PER PROTOCOL (CURRENLTY ON HOLD) FOR PE DX, AFEBRILE WITH NO TELE CHANGES NOTED, BP STABLE, NO SOB OR DISTRESS NOTED PT STATES THAT HE HAS SOME DISCOMFORT WITH DEEP INSPIRATION BUT THAT IT IS IMPROVED SINCE HE CAME IN TO HOSPITAL, COMFORT MEASURES PROVIDED, REMAINS AT BEDSIDE, SAFETY MEASURES REINFORCED. WILL CONTINUE TO MONITOR.
--- NOTE | 2018-06-25 07:35 | NUR ---
SET UP ASSIST PROVIDED FOR AM MEAL, GUEST TRAYS PROVIDED FOR SPOUSE WHO STAYS AT BEDSIDE.
--- NOTE | 2018-06-25 08:10 | NUR ---
TOLERATED AM MEAL WELL, WITH 100% INTAKE, DENIES PAIN OR DISCOMFORT THIS AM, WILL CONTINUE TO MONITOR.
[2018-06-25] MEDS ORDERED: XARELTO15 MG PO (08:23)
--- NOTE | 2018-06-25 09:20 | NUR ---
IV ACCESS REMOVED INTACT, AND ALL MONITORING EQUIPMENT REMOVED, PT GETTING DRESSED, HE CALLED A FRIEND FOR A RIDE, SPOUSE REMAINS AT BEDSIDE
--- NOTE | 2018-06-25 09:31 | NUR ---
Discharge instructions given. Patient verbalizes understanding of same. Discharged in stable condition via Ambulatory to Home with spouse. All belongings sent with pt. PT AMBULATED OFF UNIT PUSHING IN WHEELCHAIR, DECLINED HAVING WHEELCHAIR FOR HIMSLEF, STATES I WANNA WALK SOME I'VE BEEN COOPED UP IN BED FOR A FEW DAYS IT FEELS GOOD TO BE UP AND MOVING, ALL BELONGINGS SENT WITH PATIENT.
--- NOTE | 2018-06-25 09:31 | NUR ---
PT AMBULATED OFF UNIT PUSHING IN WHEELCHAIR, DECLINED HAVGIN WHEELCHAIR FOR HIMSLEF, STATES I WANNA WALK SOME I'VE BEEN COOPED UP IN BED FOR A FEW DAYS IT FEELS GOOD TO BE UP AND MOVING, ALL BELONGINGS SENT WITH PATIENT.
== END 2018-06-25 09:30 | disposition home or self-care (01) ==
LOC: ED 11:51 → ED-I 13:10 → ED 13:56 → ICU 13:57
PROVIDERS: Family Medicine; ADMIT Internal Medicine Geriatric Medicine; ATTEND Internal Medicine Geriatric Medicine
DX: I26.99 Other pulmonary embolism without acute cor pulmonale (principal); I10 Essential (primary) hypertension; I25.10 Atherosclerotic heart disease of native coronary artery without angina pectoris; E78.5 Hyperlipidemia, unspecified; J44.9 Chronic obstructive pulmonary disease, unspecified; K21.9 Gastro-esophageal reflux disease without esophagitis; K27.9 Peptic ulcer, site unspecified, unspecified as acute or chronic, without hemorrhage or perforation; R94.31 Abnormal electrocardiogram [ECG] [EKG]; R07.81 Pleurodynia; J98.11 Atelectasis
CPT/HCPCS: J1644

== ENCOUNTER → 2018-06-22 | Outpatient (REF) | payer MEDICARE, OTHER ==
[~2018-06-22] MED LIST changes: +XARELTO15 MG PO
== END | disposition home or self-care (01) ==
LOC: CT 10:38
PROVIDERS: ATTEND Internal Medicine Geriatric Medicine
DX: R07.81 Pleurodynia (principal); J98.11 Atelectasis; I26.99 Other pulmonary embolism without acute cor pulmonale

== ENCOUNTER 2020-01-10 06:23 | Day surgery (SDC) | payer MEDICARE, OTHER ==
[~2020-01-10 06:23] MED LIST changes: +ALLERGY RELIEF10 M4 PO; +ASPIRIN 8181 MG PO; -ASPIRIN EC81 MG PO; +DITROPAN5 MG/TA1 PO; +PRESERVISION AREDS PO; +PRILOSEC20 MG/CAP PO; -PRILOSEC40 MG PO; +TAMSULOSIN0.4 MG PO; +VITAMIN B-12500 MCG PO; +XARELTO15 MG PO
[2020-01-10] MEDS ORDERED: PRADAXA110 MG PO (06:58)
[2020-01-10 08:56] VITALS: BP 125/64
== END 2020-01-10 09:05 | disposition home or self-care (01) ==
LOC: ENDO 06:23 → ORM 08:00 → ENDO 08:00
PROVIDERS: ATTEND Internal Medicine Gastroenterology
PROC: 0D758ZZ Dilation of Esophagus, Via Natural or Artificial Opening Endoscopic (ICD-10-PCS; principal; 2020-01-10)
PROC: 0DB48ZX Excision of Esophagogastric Junction, Via Natural or Artificial Opening Endoscopic, Diagnostic (ICD-10-PCS; 2020-01-10)
PROC: 0DB58ZX Excision of Esophagus, Via Natural or Artificial Opening Endoscopic, Diagnostic (ICD-10-PCS; 2020-01-10)
DX: K22.2 Esophageal obstruction (principal); K29.70 Gastritis, unspecified, without bleeding; K21.00 Gastro-esophageal reflux disease with esophagitis, without bleeding; K44.9 Diaphragmatic hernia without obstruction or gangrene; K31.9 Disease of stomach and duodenum, unspecified; K22.8 Other specified diseases of esophagus; I10 Essential (primary) hypertension; F45.8 Other somatoform disorders; Z20.828 Contact with and (suspected) exposure to other viral communicable diseases

== ENCOUNTER 2021-02-16 09:05 | Day surgery (SDC) | payer MEDICARE, OTHER ==
[~2021-02-16] VITALS: Ht 182.9 cm; Wt 108.4 kg
[~2021-02-16 09:05] MED LIST changes: +PRADAXA110 MG PO
[2021-02-16] MEDS ORDERED: TRAMADOL HCL50 MG PO (13:07)
[2021-02-16 14:35] VITALS: BP 125/56
--- NOTE | 2021-02-19 12:01 | NUR ---
PATIENT WALKED IN OFFICE, POST OP 02/16/21 FOR UMBILICAL HERNIA REPAIR, PER PATIENT IS CONCERNED WITH SLIGHT SWELLING TO RIGHT ANKLE, DENIES PAIN IN AREA, PEDAL PULSES EQUAL, NO EDEMA, NO REDNESS, NOT WARM TO TOUCH, AREA OF SURGERY NOTED HEALING WITHIN NORMAL LIMITS, SLIGHT BLUE TINGED DISCOLORATION AROUND UMBILICUS. PATIENT DENIED PAIN TO AREA OF SURGERY. PER PHYSICIAN, REFERRED FOR STAT VENOUS DOPPLER TO RIGHT LOWER EXTREMITY. ORDER FAXED AND SET UP WITH [facility] AT SCHEDULING. ALSO, PER MD REFER PATIENT TO PRIMARY CARE FOR EVALUATION. SPOKE WITH DR SOUSA PCP, PER DR SOUSA TO SEE PATIENT AFTER TEST. PATIENT ADVISED OF MD ORDER, VERBALIZED UNDERSTANDING OF INFORMATION PROVIDED, AND WILL NOTIFY OUR OFFICE IF SYMPTOMS CHANGE.
== END 2021-02-16 14:30 | disposition home or self-care (01) ==
LOC: ORM 09:05
PROVIDERS: ATTEND Surgery
PROC: 0WQF0ZZ Repair Abdominal Wall, Open Approach (ICD-10-PCS; principal; 2021-02-16)
DX: K42.9 Umbilical hernia without obstruction or gangrene (principal); I10 Essential (primary) hypertension; K57.30 Diverticulosis of large intestine without perforation or abscess without bleeding; E78.5 Hyperlipidemia, unspecified; Z86.711 Personal history of pulmonary embolism
CPT/HCPCS: J0131

== ENCOUNTER 2021-03-26 13:15 | Emergency (ER) | payer OTHER, MEDICARE ==
[~2021-03-26] VITALS: Ht 182.9 cm; Wt 85.0 kg
[~2021-03-26 13:15] MED LIST changes: +TRAMADOL HCL50 MG PO
[2021-03-26] MEDS ORDERED: AMOXICILLIN500 MG PO (14:34)
[2021-03-26 15:10] VITALS: BP 138/65
== END 2021-03-26 15:10 | disposition home or self-care (01) | DRG 605 ==
LOC: ED 13:15
PROC: 0HDRXZZ Extraction of Toe Nail, External Approach (ICD-10-PCS; principal; 2021-03-26)
DX: S91.204A Unspecified open wound of right lesser toe(s) with damage to nail, initial encounter (principal); I10 Essential (primary) hypertension; E78.5 Hyperlipidemia, unspecified; W22.03XA Walked into furniture, initial encounter; Z86.711 Personal history of pulmonary embolism

== ENCOUNTER 2023-09-29 09:52 | Inpatient (IN) | payer OTHER, MEDICARE ==
[~2023-09-29] VITALS: Ht 182.9 cm; Wt 109.6 kg
[2023-09-29] VITALS (22 sets, daily range): BP systolic 118–194; BP diastolic 52–106
[~2023-09-29 09:52] MED LIST changes: +AMOXICILLIN500 MG PO; +NABUMETONE750 MG PO
--- NOTE | 2023-09-29 10:00 | NUR ---
PT TO ROOM VIA WHEELCHAIR, CHANGED INTO GOWN AND CISCO NETWORK ENGINEER APPLIED
[2023-09-29] MEDS ORDERED: ONDANSETRON HCl 4 MG/2 ML SDV IV ONE (10:25)
[2023-09-29 10:54] LABS: BASO% 0.1 % (0-3); EOS% 0.2 % (0-8); HEMATOCRIT 46.6 % (39.0-50.0); HEMOGLOBIN 15.5 g/dl (14.0-18.0); IMMATURE GRANULOCYTES 0.3 % (0.0-5.0); LYMPH% 6.2 % (15-41); MEAN CELL VOLUME 100.9 fL CALC (80.0-100.0); MEAN CORPUSCULAR HGB 33.5 pG CALC (26.0-32.0); MEAN CORPUSCULAR HGB CONC 33.3 g/dL CAL (32.0-36.0); MONO% 4.8 % (2-13); NEUT# 16.08 thou/uL (1.82-7.42); NEUT% 88.4 % (42-76); RED BLOOD COUNT 4.62 mill/uL (4.70-6.10); RED CELL DISTRI WIDTH 13.2 % (11.5-15.5)
--- NOTE | 2023-09-29 10:58 | NUR ---
PT RESTING WITH AT BEDSIDE, REPORTS DECREASED NAUSEA.
[2023-09-29 11:04] LABS: INTERNATIONAL NORMALIZED RATIO 1.2 RATIO (0.7-1.3)
[2023-09-29 11:05] LABS: PROTHROMBIN TIME 11.1 SECONDS (9.0-12.5)
[2023-09-29 11:09] LABS: ALKALINE PHOSPHATASE 78 u/l (38-126); ANION GAP 11 (6-22 (CALC)); BUN 26 mg/dL (8-23); BUN/CREATININE RATIO 22 (12-20 (CALC)); CARBON DIOXIDE 26 mmol/l (22-30); CHLORIDE 107 mmol/l (95-108); CREATININE 1.2 mg/dL (0.7-1.3); ESTIMATED GFR 60 ML/MIN (>=90 (CALC)); POTASSIUM 4.2 mmol/l (3.5-5.1); SGOT/AST 29 u/l (19-48); SODIUM 139 mmol/l (137-146); TOTAL PROTEIN 7.2 g/dL (6.3-8.2)
[2023-09-29 11:10] LABS: BILIRUBIN, TOTAL 1.5 mg/dL (0.2-1.3)
[2023-09-29] MEDS ORDERED: cefTRIAXone SODIUM 2 GM in SODIUM CHLORIDE 0.9% 100 ML IV ONE (12:50)
[2023-09-29] MEDS ORDERED: AZITHROMYCIN 500 MG in SODIUM CHLORIDE 0.9% 250 ML IV ONE (12:50)
[2023-09-29] MEDS ORDERED: ACETAMINOPHEN 325 MG/TAB PO PRN (13:30)
[2023-09-29] MEDS ORDERED: MAGNESIUM HYDROXIDE 30 ML UDC PO PRN (13:30)
[2023-09-29] MEDS ORDERED: FUROSEMIDE 40 MG/4 ML SDV IV ONE (13:55)
[2023-09-29] MEDS ORDERED: hydrALAZINE HCL 20 MG/ML VIAL(1 ML) IV PRN (14:00)
[2023-09-29 14:02] LABS: URINE BILIRUBIN - DIPSTICK Negative (NEGATIVE); URINE GLUCOSE - DIPSTICK Negative (NEGATIVE); URINE KETONE Negative (NEGATIVE); URINE LEUK ESTERASE Negative (NEGATIVE); URINE NITRITE - DIPSTICK Negative (Negative); URINE PH 8.5 (4.5-8.0); URINE PROTEIN - DIPSTICK 30 mg/dL (NEG-TRACE)
[2023-09-29 14:03] LABS: URINE COLOR Yellow
[2023-09-29] MEDS ORDERED: HYDROcodone 5 MG/Acetaminophen 325 MG/COMBO PO PRN (14:05)
[2023-09-29] MEDS ORDERED: METOPROLOL TARTRATE 25 MG/TAB PO SCH (14:20)
[2023-09-29 14:22] LABS: URINE BLOOD DIPSTICK N (NEGATIVE); URINE RBC 0-2 RBC/hpf (0-5); URINE WBC 0-2 WBC/hpf (0-5)
--- NOTE | 2023-09-29 14:28 | NUR ---
PT REPORT TO MARGARETH MANN.
[2023-09-29] MEDS ORDERED: IPRATROPIUM-Albuterol 0.5MG-2.5MG/3 ML NEB SCH (15:00)
--- NOTE | 2023-09-29 16:04 | NUR ---
Patient resting in bed, bed locked and low. Call light within reach. No apparent distress observed or reported by patient. Plan of care reviewed with patient, questions encouraged and answered to best ability within scope of practice. No further questions at this time. Patient encouraged to call if any needs were to arise. Will continue to monitor.
--- NOTE | 2023-09-29 19:15 | NUR ---
PATIENT OBSERVED RESTING IN BED. ASSESSMENT COMPLETE. ALERT AND ABLE TO MAKE NEEDS KNOWN. NO DISTRESS NOTED. DOES RECEIVE SCHEDULED NEB TREATMENTS. PATIENT ALSO OBSERVED WITH PRODUCTIVE COUGH, BLOOD TINGED SPUTUM. NO COMPLAINTS OF PAIN. BED REMAINS IN LOW POSITION. CALL JOHNSTON IN REACH.
[2023-09-29] MEDS ORDERED: DABIGATRAN ETEXILATE MESYLATE 150 MG PO SCH (21:00)
[2023-09-29] MEDS ORDERED: SIMVASTATIN 5 MG TAB PO SCH (21:00)
[2023-09-30] VITALS (10 sets, daily range): BP systolic 87–139; BP diastolic 30–69
--- NOTE | 2023-09-30 00:13 | NUR ---
PATIENT REMAINS RESTING IN BED. NO COMPLAINTS VOICED. BED REMAINS IN LOW POSITION. CALL JOHNSOTN IN REACH.
--- NOTE | 2023-09-30 04:31 | NUR ---
PATIENT RESTING IN BED. DENIES NEEDING ANYTHING AT THIS TIME. NO SIGNS OF DISTRESS. NO COUGHING OBSERVED AT THIS TIME. BED REMAINS IN LOW POSITION. CALL JOHNSTON AND BELONGINGS WITHIN REACH.
[2023-09-30 06:17] LABS: BASO% 0.1 % (0-3); EOS% 1.2 % (0-8); HEMATOCRIT 41.9 % (39.0-50.0); HEMOGLOBIN 14.1 g/dl (14.0-18.0); IMMATURE GRANULOCYTES 0.8 % (0.0-5.0); LYMPH% 9.8 % (15-41); MEAN CELL VOLUME 101.5 fL CALC (80.0-100.0); MEAN CORPUSCULAR HGB 34.1 pG CALC (26.0-32.0); MEAN CORPUSCULAR HGB CONC 33.7 g/dL CAL (32.0-36.0); MONO% 4.8 % (2-13); NEUT# 12.67 thou/uL (1.82-7.42); NEUT% 83.3 % (42-76); RED BLOOD COUNT 4.13 mill/uL (4.70-6.10); RED CELL DISTRI WIDTH 13.3 % (11.5-15.5)
[2023-09-30 06:31] LABS: ALBUMIN 3.3 g/dL (3.2-5.0); BILIRUBIN, TOTAL 1.1 mg/dL (0.2-1.3); CREATININE 1.2 mg/dL (0.7-1.3); POTASSIUM 3.6 mmol/l (3.5-5.1)
--- NOTE | 2023-09-30 07:12 | NUR ---
PATIENT RESTING QUIETLY WITH EYES CLOSED BUT EASILY AROUSED. PATIENT IS A&OX4 AND ABLE TO MAKE NEEDS KNOWN. PATIENT ABDOMEN IS SOFT AND NON TENDER, RESPIRATIONS EVEN AND UNLABORED. PATEINT DENIES ANY NEEDS AT THIS TIME. WILL CONTINUE TO MONITOR.
[2023-09-30] MEDS ORDERED: TAMSULOSIN HCL 0.4 MG CAP PO SCH (08:00)
[2023-09-30] MEDS ORDERED: AZITHROMYCIN 500 MG in SODIUM CHLORIDE 0.9% 250 ML IV SCH (09:00)
[2023-09-30] MEDS ORDERED: PANTOPRAZOLE SODIUM Sesquihydr 40 MG/TAB PO SCH (09:00)
[2023-09-30] MEDS ORDERED: IPRATROPIUM-Albuterol 0.5MG-2.5MG/3 ML NEB PRN (10:50)
--- NOTE | 2023-09-30 12:02 | NUR ---
PATIENT LAYING IN BED HAVING LUNCH. PATIENT DENIES ANY NEEDS AT THIS TIME. WILL CONTINUE TO MONITOR.
--- NOTE | 2023-09-30 15:46 | NUR ---
PATIENT RESTING IN BED WITH EYES CLOSED BUT EASILY AROUSE. PATIENT DENIES ANY NEEDS AT THIS TIME. WILL CONTINUE TO MONITOR.
[2023-10-01] VITALS (13 sets, daily range): BP systolic 126–148; BP diastolic 50–69
[2023-10-01 05:55] LABS: BASO% 0.2 % (0-3); EOS% 1.9 % (0-8); HEMOGLOBIN 14.6 g/dl (14.0-18.0); IMMATURE GRANULOCYTES 0.4 % (0.0-5.0); LYMPH% 10.4 % (15-41); MEAN CELL VOLUME 101.6 fL CALC (80.0-100.0); MEAN CORPUSCULAR HGB 33.7 pG CALC (26.0-32.0); MEAN CORPUSCULAR HGB CONC 33.2 g/dL CAL (32.0-36.0); MONO% 5.5 % (2-13); NEUT# 9.88 thou/uL (1.82-7.42); NEUT% 81.6 % (42-76); RED BLOOD COUNT 4.33 mill/uL (4.70-6.10)
[2023-10-01 06:18] LABS: ALBUMIN 3.3 g/dL (3.2-5.0); BILIRUBIN, TOTAL 1.2 mg/dL (0.2-1.3); MAGNESIUM 2.1 mg/dL (1.6-2.3); POTASSIUM 4.2 mmol/l (3.5-5.1); TOTAL PROTEIN 6.1 g/dL (6.3-8.2)
--- NOTE | 2023-10-01 07:58 | NUR ---
PATIENT LAYING IN BED WITH EYES CLOSED BUT EASILY AROUSE. PATIENT A&OX4 AND ABLE TO MAKE NEEDS KNOWN. PATIENT ABDOMEN SOFT AND NONTENDER, RESPIRATIONS EVEN AND UNLABORED. PATIENT DENIES ANY NEEDS AT THIS TIME. WILL CONTINUE TO MONITOR.
[2023-10-01] MEDS ORDERED: GUAIFENESIN 600 MG/TAB PO SCH (11:30)
--- NOTE | 2023-10-01 12:00 | NUR ---
PATIENT SITTING IN BED HAVING LUNCH. DENIES ANY NEEDS AT THIS TIME. WILL CONTINUE TO MONITOR.
--- NOTE | 2023-10-01 16:02 | NUR ---
PATIENT LAYING IN BED. PATIENT DENIES ANY NEEDS AT THIS TIME. WILL CONTINUE TO MONITOR.
[2023-10-02] VITALS: BP 130/50
[2023-10-02 04:00] VITALS: BP 161/76
[2023-10-02 04:05] VITALS: BP 157/80
[2023-10-02 04:44] VITALS: BP 161/76
[2023-10-02 06:07] LABS: BASO% 0.3 % (0-3); EOS% 1.2 % (0-8); HEMATOCRIT 43.3 % (39.0-50.0); HEMOGLOBIN 14.6 g/dl (14.0-18.0); LYMPH% 10.6 % (15-41); MEAN CELL VOLUME 99.8 fL CALC (80.0-100.0); MEAN CORPUSCULAR HGB 33.6 pG CALC (26.0-32.0); MEAN CORPUSCULAR HGB CONC 33.7 g/dL CAL (32.0-36.0); MONO% 6.7 % (2-13); NEUT# 9.52 thou/uL (1.82-7.42); NEUT% 80.2 % (42-76); RED BLOOD COUNT 4.34 mill/uL (4.70-6.10); RED CELL DISTRI WIDTH 12.5 % (11.5-15.5)
[2023-10-02 06:20] LABS: ALBUMIN 3.4 g/dL (3.2-5.0); BILIRUBIN, TOTAL 1.2 mg/dL (0.2-1.3); CREATININE 0.9 mg/dL (0.7-1.3); TOTAL PROTEIN 6.3 g/dL (6.3-8.2)
[2023-10-02 06:35] VITALS: BP 155/70
--- NOTE | 2023-10-02 07:20 | NUR ---
PT SITTING UP IN THE BED TALKING ON THE PHONE HIS IS AT BEDSIDE, PT IS A&O X 3, PUPILS PERRL, LUNG SOUNDS CLEAR, ACTIVE BOWEL SOUNDS, ABD DISTENDED BUT SOFT, 20G RFA IV SL, DRESSING CD&I, STRONG RADIAL PULSES, WEAK PEDAL PULSES, PT VERBALIZES NO NEEDS AT THIS TIME, SAFETY MEASURES IN PLACE CALL [facility] WITHIN REACH
--- NOTE | 2023-10-02 09:15 | NUR ---
PT COMPLAINS OF IV SITE BURNING WITH ABX INFUSING, ABX STOPPED, IV FLUSHED WITH WITH A BRISK BLOOD RETURN, AR DENIES ANY PAIN AT THIS TIME, ABX INFUSED AT A SLOWER RATE 920- PT CALLED REQUESTING ABX TO BE STOPPED BECAUSE HIS IV SITE GRIFFIN, ABX STOPPED AND MADE AWARE OF PT'S COMPLAINT
[2023-10-02] MEDS ORDERED: ZITHROMAX250 MG PO (11:14)
[2023-10-02] MEDS ORDERED: OMNICEF300 MG PO (11:14)
[2023-10-02 11:25] VITALS: BP 148/73
--- NOTE | 2023-10-02 12:26 | NUR ---
Discharge instructions given. Patient verbalizes understanding of same. Discharged in stable condition via Ambulatory to Home with spouse. All belongings sent with pt.
== END 2023-10-02 12:30 | disposition home or self-care (01) | DRG 178 ==
LOC: ED 09:52 → ED-I 10:30 → ED 13:27 → MS2 13:28
PROVIDERS: Family Medicine; ADMIT Student in an Organized Health Care Education/Training Program; ATTEND Student in an Organized Health Care Education/Training Program
DX: J15.0 Pneumonia due to Klebsiella pneumoniae (principal); J44.0 Chronic obstructive pulmonary disease with (acute) lower respiratory infection; R04.2 Hemoptysis; I10 Essential (primary) hypertension; E78.5 Hyperlipidemia, unspecified; I25.10 Atherosclerotic heart disease of native coronary artery without angina pectoris; K21.9 Gastro-esophageal reflux disease without esophagitis; N40.0 Benign prostatic hyperplasia without lower urinary tract symptoms; H35.30 Unspecified macular degeneration; Z86.711 Personal history of pulmonary embolism; Z86.718 Personal history of other venous thrombosis and embolism; Z83.2 Family history of diseases of the blood and blood-forming organs and certain disorders involving the immune mechanism; Z79.02 Long term (current) use of antithrombotics/antiplatelets; Z20.822 Contact with and (suspected) exposure to COVID-19
CPT/HCPCS: Q9967